=== PATIENT | female | born 1995 | race Caucasian/White ===

== ENCOUNTER 2017-07-23 00:45 | Inpatient (IN) | payer OTHER, MEDICAID ==
[~2017-07-23] VITALS: Ht 167.6 cm; Wt 66.5 kg
[2017-07-23 00:59] VITALS: BP 123/76; PULSE 66; RESP 15; TEMP 97.6; O2SAT 99
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
[2017-07-23 01:32] LABS: BASOPHIL % 0.6 % (0.0-2.0); EOSINOPHIL # 0.1 TH/MM3 (0-0.4); EOSINOPHIL % 0.9 % (0.0-4.0); HEMATOCRIT 38.1 % (35.0-46.0); HEMOGLOBIN 13.3 GM/DL (11.6-15.3); LYMPH % 31.5 % (9.0-44.0); LYMPHOCYTE # 2.1 TH/MM3 (1.0-4.8); MEAN CELL VOLUME 88.1 FL (80.0-100.0); MEAN CORPUSCULAR HEMOGLOBIN 30.7 PG (27.0-34.0); MEAN CORPUSCULAR HGB CONC 34.9 % (32.0-36.0); MEAN PLATELET VOLUME 8.4 FL (7.0-11.0); MONO % 7.8 % (0.0-8.0); MONOCYTE # 0.5 TH/MM3 (0-0.9); NEUT % 59.2 % (16.0-70.0); PLATELET COUNT 235 TH/MM3 (150-450); RED BLOOD COUNT 4.33 MIL/MM3 (4.00-5.30); RED CELL DISTRIBUTION WIDTH 13.5 % (11.6-17.2); WHITE BLOOD COUNT 6.7 TH/MM3 (4.0-11.0)
[2017-07-23 01:37] LABS: ALBUMIN 4.3 GM/DL (3.4-5.0); ALT (GPT) 28 U/L (9-42); AST (GOT) 29 U/L (16-38); BICARBONATE 27.5 MEQ/L (21.0-32.0); BLOOD UREA NITROGEN 8 MG/DL (7-18); CALCIUM 8.9 MG/DL (8.5-10.1); CHLORIDE 106 MEQ/L (98-107); CREATININE 0.81 MG/DL (0.50-1.00); GLOMERULAR FILTRATION RATE 90 ML/MIN (>89); GLUCOSE,RANDOM 90 MG/DL (74-106); SODIUM (NA) 138 MEQ/L (136-145)
[2017-07-23 01:38] LABS: ACETAMINOPHEN LESS THAN 2.0 MCG/ML (10.0-30.0)
[2017-07-23 01:47] LABS: ALKALINE PHOSPHATASE 55 U/L (45-117); TOTAL BILIRUBIN ADULT 0.7 MG/DL (0.2-1.0); TOTAL PROTEIN 8.4 GM/DL (6.4-8.2)
[2017-07-23] MEDS ORDERED: diphenhydrAMINE HCL 50 MG CAP PO PRN (08:00)
[2017-07-23] MEDS ORDERED: ACETAMINOPHEN 325 MG TAB PO PRN (08:00)
[2017-07-23] MEDS ORDERED: NICOTINE 21 MG/24 HR PATCH T-DERMAL PRN (08:00)
[2017-07-23] MEDS ORDERED: MAGNESIUM HYDROXIDE SUSP 30 ML CUP PO PRN (08:00)
[2017-07-23] MEDS ORDERED: ALUMINUM/MAGNESIUM/SIMETH 30 ML CUP PO PRN (08:00)
[2017-07-23] MEDS ORDERED: BENZTROPINE MESYLATE 1 MG TAB PO PRN (08:00)
[2017-07-23] MEDS ORDERED: BENZTROPINE MESYLATE 2 MG/2 ML VIAL IM PRN (08:00)
--- NOTE | 2017-07-23 09:16 | RADRPT ---
EXAM DATE/TIME: 07/23/2017 09:09 [place] COMPARISON: No previous studies available for comparison. INDICATIONS : Altered mental status. RADIATION DOSE: 49.57 CTDIvol (mGy) MEDICAL HISTORY : None SURGICAL HISTORY : None. ENCOUNTER: Initial ACUITY: 1 day PAIN SCALE: 0/10 LOCATION: Bilateral head TECHNIQUE: Multiple contiguous axial images were obtained of the head. Using automated exposure control and adj ustment of the mA and/or kV according to patient size, radiation dose was kept as low as reasonably a chievable to obtain optimal diagnostic quality images. DICOM format image data is available electro nically for review and comparison. FINDINGS: CEREBRUM: The ventricles are normal for age. No evidence of midline shift, mass lesion, hemorrhage or acute in farction. No extra-axial fluid collections are seen. POSTERIOR FOSSA: The cerebellum and brainstem are intact. The 4th ventricle is midline. The cerebellopontine angle i s unremarkable. EXTRACRANIAL: The visualized portion of the orbits is intact. SKULL: The calvaria is intact. No evidence of skull fracture. CONCLUSION: Normal examination. Alejandro Glover MD on July 23, 2017 at 9:14 Board Certified Radiologist. This report was verified electronically.
--- NOTE | 2017-07-23 10:17 | MH ---
cc: RENAY LAYTON DATE OF ADMISSION 07/23/2017 DATE OF ADMISSION ADMITTING DIAGNOSIS 1. Other psychotic disorder, F28. 2. Polysubstance abuse, F19.10. 3. Borderline personality traits. LEGAL STATUS The patient is presently declining to consent for voluntary admission. Involuntary status. The patient retains capacity to consent for medication. CHIEF COMPLAINT "I never said that." HISTORY OF PRESENT ILLNESS Ms. Cesar is a 21-year-old female with no reported past psychiatric history who presents under a Holloway Act from the [facility]'s Office alleging that she had a conversation with her mother in which the patient made statements of "Maybe I should just kill myself." Reviewing our electronic medical record, it appears this is the patient's first visit to [place]. Patient seen and examined with the nurse. Chart reviewed. Case discussed with nursing staff. On my examination this morning, cluster-B personality traits, chiefly borderline, are evident. The patient is somewhat oppositional with poor eye contact. Regarding the allegations in the Holloway Act the patient says "I never said that." She denies having an argument with her mother prior to this episode but does note "No matter how nice I am, she is trying to make it seem like something is wrong with me, but there is not." She denies any suicidal or homicidal ideation presently but seems unreliable to contract for safety. She does admit to chiefly generalized anxiety and notes that her sleep is poor due to anxious rumination. She denies any low mood, denies any hopelessness, worthlessness or morbid guilt. No hypomanic or manic symptoms. Appetite is fair. The patient does report about six or eight months of auditory hallucinations of "words." She denies any command auditory hallucinations but is a somewhat unreliable historian. She also reports visual hallucinations of "animals." She denies that these hallucinations are impacted by her ongoing substance use. I can elicit no paranoia, no thought insertion or withdrawal, no ideas of reference. The remainder of the psychiatric ROS is negative. The patient has no physical complaints. PAST PSYCHIATRIC HISTORY The patient denies a history of psychiatric diagnosis. She is not under the care of a psychiatrist. She denies a history of psychiatric admissions. She denies a history of suicide attempts. She does endorse a history of non-suicidal self-injurious behavior, namely cutting. FAMILY HISTORY The patient reports that her biological father may have had some sort of psychiatric diagnosis but she is unsure. She denies any family history of suicide. CHEMICAL DEPENDENCY HISTORY The patient reports that she uses occasional cocaine and cannabis. She denies any use of alcohol or other substances. She can provide no explanation for the amphetamines found on her urine toxicology. SOCIAL HISTORY The patient reports that she lives with her mother and brother. She is high school educated. She does not work. She is single with no children. She denies any access to guns or firearms. Denies any legal problems. PAST MEDICAL HISTORY The patient denies. MEDICATIONS The patient reports that she takes no medications. ALLERGIES The patient reports she has no known allergies. REVIEW OF SYSTEMS Except as noted in the HPI, this is negative. PHYSICAL EXAMINATION Vital Signs: Temperature 97.6, pulse 66, respirations 15, blood pressure 123/76, pulse oximetry 99% on room air. Physical examination was completed by the ED provider. On my examination today, the patient appears to be in no acute physical distress. No signs of intoxication or withdrawal presently. No motoric abnormalities noted. LABORATORY Laboratory is reviewed: CMP is unremarkable. TSH is within normal limits. Tylenol level undetectable. Alcohol level undetectable. Urine toxicology positive for amphetamines and cannabinoids. CBC is unremarkable. Salicylate level undetectable. MENTAL STATUS EXAMINATION The patient is in hospital attire. She is somewhat disheveled but maintaining basic hygiene. She is awake and alert and oriented x4. No motor abnormalities noted. Speech is somewhat terse but otherwise within normal limits for rate, tone and volume. Language and fund of knowledge are average. Focus and concentration are somewhat distracted. Memory is grossly intact on clinical exam. Mood is dysphoric and affect is restricted. Thought process is linear. No loosening of associations. No delusional material elicited. She does report audiovisual hallucinations as noted above. She denies suicidal or homicidal ideation presently but seems unreliable to contract for safety. Insight and judgment are poor. ASSESSMENT This is a 21-year-old female with psychiatric history as detailed above who presents under a Holloway Act. On my examination today, the patient denies making the alleged statements as listed in the Holloway Act. She does present as quite dysphoric with cluster-B personality traits. She reports relatively recent onset, over the last several months, of psychotic symptoms, namely audiovisual hallucinations. It is unclear if these symptoms are substance-induced, a consequence of micro psychosis from a borderline personality style, or represent bridgette danny psychosis. If the last of these, patient is presently psychotic and unreliable to contract for safety. I fear that she is unreliable to contract for safety in general and will plan to admit the patient to the inpatient psychiatric unit for safety and observation. PLAN 1. Admit inpatient. The patient is declining to consent for voluntary admission. Involuntary status. I have completed first opinion. Consult for second opinion. The patient retains capacity to consent for medications. She is declining any psychotropic medications at this time, and so none will be ordered. I will initiate a first break psychosis work-up given the patient's reported symptomatology. 2. Vitals every shift. 3. Counselor to see. 4. Disposition planning. 5. Estimated length of stay 3-5 days. Renay Layton DC/JAX /7:25 AM /9:46 AM MTDD
[2017-07-23 11:24] VITALS: BP 109/59; PULSE 76; RESP 17; TEMP 97.1; O2SAT 98
[2017-07-23 18:10] VITALS: BP 118/66; PULSE 55; RESP 16; TEMP 97.8; O2SAT 99
[2017-07-24 05:09] VITALS: BP 98/58; PULSE 60; RESP 16; TEMP 98.1; O2SAT 98
[2017-07-24 09:16] LABS: CHOLESTEROL 110 MG/DL (120-200); TRIGLYCERIDES 77 MG/DL (42-150)
[2017-07-24 09:43] LABS: CHOLESTEROL/ HDL RATIO 2.39 RATIO; HDL CHOLESTEROL 45.9 MG/DL (40.0-60.0); LDL CHOLESTEROL 49 MG/DL (0-99)
[2017-07-24] MEDS ORDERED: INFLUENZA VIRUS VACCINE (QUADRIVALENT) 0.5 ML SYR IM ONE (10:00)
[2017-07-24] MEDS ORDERED: PNEUMOCOCCAL POLYVALENT INJ 25 MCG/0.5 ML SYR IM ONE (10:00)
[2017-07-24 12:23] LABS: HEMOGLOBIN A1C 5.5 % (4.3-6.0)
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
[2017-07-24 16:52] VITALS: BP 99/55; PULSE 73; RESP 18; TEMP 97.6; O2SAT 99
--- NOTE | 2017-07-25 12:33 | HHI.PYPN ---
Subjective Remarks Patient seen and examined with nurse. Chart reviewed. Case discussed with nursing staff who reports the patient presents with a flat affect but has been no behavioral problem. On my examination today, the patient reports that her mood is "good" although her affect is quite blunted tending towards flat. She denies any AVH. Denies any paranoia. Denies any SI or HI. Continues to decline any psychotropic medications. No physical complaints. We discussed the patient's substance use, and the patient agrees that her use is problematic and agrees with a referral for outpatient chemical dependency treatment. Case discussed with counselor who will endeavor to obtain collateral information from family. Review of Systems Except as stated in HPI: all other systems reviewed are Neg Mental Status Examination Appearance: Appropriate Consciousness: Alert Orientation: x4 Motor Activity: Other (no motor abnormalities noted) Speech: Unremarkable Language: Adequate Fund of Knowledge: Adequate Attention and Concentration: Adequate Memory: Unremarkable Mood: Good Affect: Blunt Thought Process & Associations: Linear Thought Content: Appropriate Hallucination Type: None Delusion Type: None Suicidal Ideation: No Suicidal Plan: No Suicidal Intention: No Homicidal Ideation: No Homicidal Plan: No Homicidal Intention: No Insight: Poor Judgment: Poor Results Labs Last Impressions Head CT 07/23/17 0000 Signed Impressions: Service Date/Time: Sunday, July 23, 2017 09:09 - CONCLUSION: Normal examination. Alejandro Glover MD Item Value Date Time Erythrocyte Sedimentation Rate 11 mm/hr 07/23/17 1405 Vitamin B12 Level 334 PG/ML 07/24/17 0748 25-Hydroxy Vitamin D Total 18.3 ng/ML L 07/24/17 0748 Thyroid Stimulating Hormone 3rd Gen 0.463 uIU/ML 07/23/17 0100 Rapid Plasma Reagin NON-REACTIVE 07/23/17 1405 HIV (1&2) Antibody NEGATIVE 07/23/17 1405 Labs and studies reviewed. Laboratory workup unrevealing for organic cause for patient's reported hallucinations at admission. FLAVIO still pending. Vitals/IOs Vital Signs Date Time Temp Pulse Resp B/P (MAP) Pulse Ox O2 Delivery O2 Flow Rate FiO2 07/24/17 16:52 97.6 73 18 99/55 (70) 99 07/23/17 00:59 Room Air Assessment & Plan Problem List: (1) Adjustment disorder ICD Codes: F43.20 - Adjustment disorder, unspecified (2) Polysubstance abuse ICD Codes: F19.10 - Other psychoactive substance abuse, uncomplicated Assessment & Plan Patient continues to refuse any psychotropic medications. She is not presently endorsing psychotic symptoms. Continue to monitor on the inpatient unit. Continue other medications and care as ordered. Justification for Cont. Inpt. Monitoring for impairment in safety, none noted Discharge Planning Possible discharge tomorrow pending collateral information Request HC Surrog/Guard Advoc?: No Problem Qualifiers (1) Adjustment disorder: Qualified Codes: F43.20 - Adjustment disorder, unspecified Gopal Layton MD Jul 25, 2017 12:33
[2017-07-25 14:42] LABS: ANA SCREEN POS (NEG)
[2017-07-25 18:08] VITALS: BP 103/68; PULSE 56; RESP 18; TEMP 97.7; O2SAT 100
[2017-07-26 04:48] VITALS: BP 100/61; PULSE 58; RESP 16; TEMP 98.1; O2SAT 97
[2017-07-26] MEDS ORDERED: VITD400 PO (10:10)
--- NOTE | 2017-07-26 10:10 | HHI.DS ---
Psychiatry Discharge Summary Inpatient Psychiatric care?: Yes Advance Directive: No Reason Not Provided: Due to Patient Condition Mental Health AdvanceDirective: No Health Care Proxy: No Admission Admission Date Jul 23, 2017 at 07:58 Admission Diagnosis: (1) Other psychotic disorder not due to a substance or known physiological condition ICD Code: F28 - Other psychotic disorder not due to a substance or known physiological condition (2) Polysubstance abuse ICD Code: F19.10 - Other psychoactive substance abuse, uncomplicated Brief History Ms. Cesar is a 21-year-old female with no reported past psychiatric history who presents under a Holloway Act from the [facility]'s Office alleging that she had a conversation with her mother in which the patient made statements of "Maybe I should just kill myself." Reviewing our electronic medical record, it appears this is the patient's first visit to [place]. Patient seen and examined with the nurse. Chart reviewed. Case discussed with nursing staff. On my examination this morning, cluster-B personality traits, chiefly borderline, are evident. The patient is somewhat oppositional with poor eye contact. Regarding the allegations in the Holloway Act the patient says "I never said that." She denies having an argument with her mother prior to this episode but does note "No matter how nice I am, she is trying to make it seem like something is wrong with me, but there is not." She denies any suicidal or homicidal ideation presently but seems unreliable to contract for safety. She does admit to chiefly generalized anxiety and notes that her sleep is poor due to anxious rumination. She denies any low mood, denies any hopelessness, worthlessness or morbid guilt. No hypomanic or manic symptoms. Appetite is fair. The patient does report about six or eight months of auditory hallucinations of "words." She denies any command auditory hallucinations but is a somewhat unreliable historian. She also reports visual hallucinations of "animals." She denies that these hallucinations are impacted by her ongoing substance use. I can elicit no paranoia, no thought insertion or withdrawal, no ideas of reference. The remainder of the psychiatric ROS is negative. The patient has no physical complaints. Tobacco Use In Past 30 Days: 5 or More Cigarettes/Day Alcohol Use: 2-4 Times Per Month Hospital Course Patient was admitted to a locked, inpatient psychiatric unit. Appropriate precautions were in place throughout patient's hospital stay. Patient seen and examined on the unit by psychiatry and also visited by counselor. Patient declined any psychotropic medications. Medical workup of patient's presenting psychotic symptoms was undertaken, and this was unrevealing except for positive FLAVIO, for which the patient has been referred to her primary care to follow up. There was no evidence of any suicidality or homicidality on the inpatient unit. Patient remained in good behavioral control and was medication compliant. Collateral information was obtained by the counselor from the patient's mother and godmother, both of whom are comfortable with having the patient leave the hospital today per counselor report. On the day of discharge: Patient seen and examined with nurse. Chart reviewed. Case discussed with nursing staff. No behavioral issues noted overnight. Case discussed in treatment team. On my examination today, the patient is requesting discharge from the inpatient psychiatric unit today. She denies any suicidal or homicidal ideation, intent or plan on direct questioning and contracts for safety. I can elicit no depressive or hypomanic/manic symptoms. She denies any audiovisual hallucinations. I can elicit no delusional material. There is no evidence of any impairment in reality construction at this time. She has no physical complaints. Suicide and violence risk assessment on day of discharge both suggest lower imminent risk, and the patient's level of function is adequate for outpatient care. The patient no longer meets criteria for involuntary psychiatric hospitalization. She is requesting discharge from the inpatient psychiatric unit today, and I have no basis to retain her over her objection. Patient will be discharged today with psychiatric follow-up as arranged by counselor. She is also to follow-up with primary care. I have counseled the patient to abstain from substances of abuse and have recommended chemical dependency evaluation and treatment on an outpatient basis. I have counseled the patient regarding warning signs for need to return to the psychiatric emergency room as part of the general safety plan. Results Blood Pressure 100 / 61 Vital Signs Date Time Temp Pulse Resp B/P (MAP) Pulse Ox O2 Delivery O2 Flow Rate FiO2 07/26/17 04:48 98.1 58 16 100/61 (74) 97 07/23/17 00:59 Room Air Laboratory Tests Test 07/23/17 14:05 07/24/17 07:48 Anti-Nuclear Antibody Screen POS (NEG) Cholesterol Level 110 MG/DL (120-200) 25-Hydroxy Vitamin D Total 18.3 ng/ML (30-100) Laboratory Results Test 07/24/17 07:48 Cholesterol Level 110 MG/DL (120-200) HDL Cholesterol 45.9 MG/DL (40.0-60.0) Hemoglobin A1c 5.5 % (4.3-6.0) LDL Cholesterol 49 MG/DL (0-99) Triglycerides Level 77 MG/DL (42-150) Summary of Procedures None done Imaging Last Impressions Head CT 07/23/17 0000 Signed Impressions: Service Date/Time: Sunday, July 23, 2017 09:09 - CONCLUSION: Normal examination. Alejandro Glover MD Pending results at discharge: Yes (FLAVIO titre) Medications # of Antipsychotic meds at D/C: 0 Approp Antipsych med options 1 - Minimum of three failed multiple trials of monotherapy. 2 - Documented plan to taper to monotherapy due to previous use of multiple meds OR cross-taper in progress at D/C. 3 - Documentation of augmentation of Clozapine. 4 - Justification other than those listed in allowable values 1-3, document here : Discharge Discharge Date: Jul 26, 2017 Discharge Diagnosis: (1) Adjustment disorder Diagnosis: Principal (resolved) ICD Code: F43.20 - Adjustment disorder, unspecified (2) Polysubstance abuse Diagnosis: Secondary (counseled to quit) ICD Code: F19.10 - Other psychoactive substance abuse, uncomplicated Pt Condition on Discharge: Stable Discharge Disposition: Discharge Home Discharge Instructions Diet Instructions: As Tolerated, No Restrictions Activities you can perform: Weight Bearing as [place] Scheduled Appointment: Vincent Brunner Appointment Date: Aug 02, 2017 Appointment Time: 07:30a.m. New Orders: VITAMIN D,25-HYDROXY - 2 Months New Medications: Cholecalciferol (Vitamin D3) 400 Unit Tab 400 UNITS PO DAILY for Nutritional Supplement, #15 TAB 1 Refill Discharge Time <= 30 minutes Mental Status Examination Appearance: Appropriate Consciousness: Alert Orientation: x4 Motor Activity: Other (no abnormal motor movements noted.) Speech: Unremarkable Language: Adequate Fund of Knowledge: Adequate Attention and Concentration: Adequate Memory: Unremarkable Mood: Appropriate Affect: Appropriate, Blunt Thought Process & Associations: Intact, Logical, Goal directed, Linear Thought Content: Appropriate Hallucination Type: None Delusion Type: None Suicidal Ideation: No Suicidal Plan: No Suicidal Intention: No Homicidal Ideation: No Homicidal Plan: No Homicidal Intention: No Mental Status Exam Remarks Insight and judgment are fair Discharge/Advance Care Plan Health Problems: (1) Adjustment disorder (2) Polysubstance abuse Goals to promote your health * To prevent worsening of your condition and complications * To maintain your health at the optimal level Directions to meet your goals Take your medications as prescribed Follow your dietary instruction Follow activity as directed Keep your appointments as scheduled Take your immunizations and boosters as scheduled If your symptoms worsen call your PCP, if no PCP go to Urgent Care Center or Emergency Room For 20/12 questions related to your inpatient stay or results of tests pending at discharge, please contact Dr. Gopal Layton at Smoking is Dangerous to Your Health. Avoid second hand smoking Problem Qualifiers (1) Adjustment disorder: Qualified Codes: F43.20 - Adjustment disorder, unspecified Gopal Layton MD Jul 26, 2017 10:10
[2017-07-27 16:05] LABS: ANA PATTERN SPECKLED
== END 2017-07-26 12:25 | disposition home or self-care (01) | DRG 882 ==
LOC: NEPJ 00:45 → NEDA 07:58 → H260 10:00
PROVIDERS: ADMIT Psychiatry & Neurology Psychiatry; ATTEND Psychiatry & Neurology Psychiatry
DX: F43.20 Adjustment disorder, unspecified (principal); Z91.14 Patient's other noncompliance with medication regimen; F12.90 Cannabis use, unspecified, uncomplicated; F19.10 Other psychoactive substance abuse, uncomplicated
CPT/HCPCS: 70450; 80053; 80061; 80307; 82306; 82607; 83036; 84443; 84703; 85025; 85652; 86038; 86039; 86592; 86703